=== PATIENT | female | born 1960 | race Caucasian/White ===

== ENCOUNTER 2023-04-02 13:40 | Inpatient (IN) | payer MEDICARE ==
[~2023-04-02 13:40] MED LIST: GASTROGRAFIN 30 ML BOT ONE
[2023-04-02] MEDS ORDERED: NOREPINEPHRINE 8 MG/250 ML-D5W 250 ML ONE (14:08)
[2023-04-02 14:29] LABS: #Basophils 0.2 thou/uL (0.0-0.2); #Monocytes 2.2 thou/uL (0.11-0.59); #Neutrophils 11.1 thou/uL (1.40-6.50); %Basophils 0.9 % (0.0-1.0); %Eosinophils 0.1 % (0.0-10.0); %Lymphocytes 19.2 % (21.0-51.0); %Monocytes 13.1 % (0.0-10.0); %Neutrophils 65.8 % (42.0-75.0); Hemoglobin 9.5 g/dL (12.0-16.0); Mean Corpuscular HGB CONC 27.9 g/dL (32.0-36.0); Mean Corpuscular Hemoglobin 21.9 pg (27.0-31.0); Mean Corpuscular Volume 78.5 fl (78.0-98.0); Mean Platelet Volume 9.5 fL (7.4-10.4); Platelet Count 374 10x3/uL (130-400); RBC Distribution Width 19.8 % (11.5-14.5); Red Blood Cell (RBC) Count 4.33 mill/uL (4.20-5.40); White Blood Cell (WBC) Count 16.9 10x3/uL (4.8-10.8)
[2023-04-02] MEDS ORDERED: Cefepime 2 GM VIAL ONE (14:45)
[2023-04-02] MEDS ORDERED: metroNIDAZOLE 500 MG/100 ML BAG ONE (14:45)
[2023-04-02] MEDS ORDERED: Vancomycin 1 GM/200 ML (FROZEN) BAG ONE (14:45)
[2023-04-02 14:53] LABS: INR-International Normal Ratio 1.2; PTT 43.2 sec (22.9-36.1); Prothrombin Time 16.1 sec (12.0-14.7)
[2023-04-02 14:53] LABS: ALT (SGPT) 9 U/L (8-55); AST (SGOT) 24 U/L (5-34); Albumin 2.9 g/dL (3.4-4.8); Alkaline Phosphatase 105 U/L (40-110); Anion Gap 20 mmol/L (10-20); BUN (Urea Nitrogen) 30 mg/dL (9.8-20.1); Bilirubin, Total 0.3 mg/dL (0.2-1.2); Calc. Creatinine Clearance 0 mL/min (70-130); Calcium 7.3 mg/dL (7.8-10.44); Carbon Dioxide 18 mmol/L (23-31); Chloride 100 mmol/L (98-107); Estimated GFR 8; Globulin 3.4 g/dL (2.4-3.5); Glucose 87 mg/dL (80-115); Potassium 4.5 mmol/L (3.5-5.1); Protein, Total 6.3 g/dL (5.8-8.1); Sodium 133 mmol/L (136-145)
[2023-04-02 14:59] LABS: Anisocytosis SLIGHT = 6-15 cells HPF (0-5); Burr Cells MODERATE= 6-15 cells HPF (0-1); CellaVision Operator ID LAB.MJL; Hypochromia SLIGHT = 6-15 cells HPF (0-5); Microcytosis SLIGHT = 6-15 cells HPF (0-5); Ovalocytes SLIGHT = 2-5 cells HPF (0-1); Platelet Adequacy Comment Platelets Normal; Poikilocytosis MODERATE=16-30 cells HPF (0-5); Polychromasia SLIGHT = 2-3 cells HPF (0-2)
[2023-04-02] MEDS ORDERED: Ondansetron PF 4 MG/2 ML Vial ONE (16:23)
[2023-04-02] MEDS ORDERED: Morphine 4 MG/ML VIAL ONE (16:23)
[2023-04-02 18:40] LABS: Bilirubin Negative (Negative); Blood, Urine Trace (Negative); CAUTI Indications for Culture Dysuria,urgency,freq; Clarity Turbid (Clear); Glucose, Urine (Dipstick) Normal (Negative); Ketone, Urine Negative (Negative); Leukocyte 25 Leu/uL (Negative); Nitrite Negative (Negative); Protein, Urine (Dipstick) 20 mg/dL (Neg-Trace); RBC/HPF 0-3 HPF (0-3); Squamous Epithelial 0-3 HPF (0-3); Urobilinogen Normal mg/dL (Less than 2); WBC/HPF 0-3 HPF (0-3)
[2023-04-02 18:48] LABS: Bacteria/HPF 2+ HPF (None Seen)
[2023-04-02 18:49] LABS: Urine Culture Reflex No No
[2023-04-02] MEDS ORDERED: Ipratropium/Albuterol 3 ML NEB EZPAP PRN (19:33)
[2023-04-02] MEDS ORDERED: Dextrose 50% Abboject 50 ML SYRINGE SLOW IVP PRN (19:38)
[2023-04-02] MEDS ORDERED: HumaLOG 300 UNITS/3 ML VIAL SC PRN (19:38)
[2023-04-02] MEDS ORDERED: Dextrose 5% in Water 1,000 ML IV PRN (19:38)
[2023-04-02] MEDS ORDERED: Glucagon 1 MG/ML KIT IM PRN (19:38)
[2023-04-02] MEDS ORDERED: Sodium Chloride 0.9% 1,000 ML IV SCH (19:45)
[2023-04-02] MEDS ORDERED: Albumin 25% 25 GM/100 ML BOT IVPB SCH (20:00)
[2023-04-02 20:23] LABS: Analyzer IN Cardio ER; Base Excess (BEa) -11.9 mEq/L (-2.0 to +3.0); CO2 Tension 36.4 mmHg (35.0-45.0); Calcium, Ionized (arterial) 0.93 mmol/L (1.12-1.30); Carboxyhemoglobin (COHb) 0.2 gm% (0.0-3.0); Hematocrit-ABG 30 % (36.0-47.0); Hemoglobin (Hb) 10.2 g/dL (12.0-16.0); O2 Tension (PaO2), arterial 90.6 mmHg (> 80.0); Potassium - ABG Lab 4.03 mmol/L (3.70-5.30); pH, Arterial 7.227 (7.35-7.45)
[2023-04-02 20:28] LABS: Actual Bicarbonate (HCO3a) 14.8 mEq/L (22-28); Puncture Site RR
[2023-04-02 21:16] LABS: Troponin I Less than 0.010 ng/mL (< 0.028)
[2023-04-02 21:22] LABS: Magnesium 0.7 mg/dL (1.6-2.6)
[2023-04-02] MEDS ORDERED: Magnesium 2 GM/50 ML(in water) 2 GM in Premix Bag 1 BAG IVPB SCH (21:30)
[2023-04-02] MEDS: Heparin 5,000 UNITS/ML VIAL SC SCH (21:51)
[2023-04-02 21:59] VITALS: BMI 26.2
[2023-04-02] MEDS ORDERED: Vancomycin Dose by Levels Sliding Scale (Wt <71) FS SCH (22:15)
[2023-04-02] MEDS: NOREPINEPHRINE 8 MG/250 ML-D5W 250 ML IVPB SCH (23:01)
[2023-04-02] MEDS: Ipratropium/Albuterol 3 ML NEB NEB SCH (23:19)
[2023-04-02] MEDS ORDERED: Sodium Chloride 0.9% 200 ML IV SCH (23:30)
[2023-04-03 00:51] LABS: Troponin I Less than 0.010 ng/mL (< 0.028)
[2023-04-03 01:52] LABS: Campy jejuni + coli by PCR Negative (Negative); STEC Shiga Toxin 1+2 Negative (Negative); Salmonella spp. by PCR Negative (Negative); Shigella spp + EIEC by PCR Negative (Negative)
[2023-04-03 04:42] LABS: #Basophils 0.1 thou/uL (0.0-0.2); #Eosinphils 0.2 thou/uL (0.0-0.7); #Monocytes 2.1 thou/uL (0.11-0.59); %Basophils 0.9 % (0.0-1.0); %Eosinophils 1.4 % (0.0-10.0); %Lymphocytes 12.5 % (21.0-51.0); %Monocytes 17.3 % (0.0-10.0); %Neutrophils 67.1 % (42.0-75.0); Hemoglobin 8.4 g/dL (12.0-16.0); Mean Corpuscular HGB CONC 27.6 g/dL (32.0-36.0); Mean Corpuscular Hemoglobin 21.6 pg (27.0-31.0); Mean Corpuscular Volume 78.4 fl (78.0-98.0); Mean Platelet Volume 9.6 fL (7.4-10.4); Platelet Count 318 10x3/uL (130-400); RBC Distribution Width 19.5 % (11.5-14.5); Red Blood Cell (RBC) Count 3.88 mill/uL (4.20-5.40); White Blood Cell (WBC) Count 11.9 10x3/uL (4.8-10.8)
[2023-04-03 05:12] LABS: ALT (SGPT) 7 U/L (8-55); AST (SGOT) 18 U/L (5-34); Albumin 3.2 g/dL (3.4-4.8); Alkaline Phosphatase 83 U/L (40-110); Anion Gap 16 mmol/L (10-20); BUN (Urea Nitrogen) 27 mg/dL (9.8-20.1); Bilirubin, Total 0.3 mg/dL (0.2-1.2); Calc. Creatinine Clearance 15 mL/min (70-130); Calcium 7.2 mg/dL (7.8-10.44); Carbon Dioxide 17 mmol/L (23-31); Chloride 105 mmol/L (98-107); Estimated GFR 12; Glucose 184 mg/dL (80-115); Magnesium 1.6 mg/dL (1.6-2.6); Potassium 3.9 mmol/L (3.5-5.1); Protein, Total 6.2 g/dL (5.8-8.1); Sodium 134 mmol/L (136-145)
[2023-04-03] MEDS: NOREPINEPHRINE 8 MG/250 ML-D5W 250 ML IVPB SCH ×3 (05:15→23:25)
[2023-04-03] MEDS ORDERED: Magnesium 2 GM/50 ML(in water) 2 GM in Premix Bag 1 BAG IVPB SCH (05:30)
[2023-04-03] MEDS ORDERED: Sodium Bicarbonate 150 MEQ in Dextrose 5% in Water 1,000 ML IV SCH (06:00)
[2023-04-03] MEDS: Ipratropium/Albuterol 3 ML NEB NEB SCH ×4 (07:55→23:11)
[2023-04-03] MEDS: Heparin 5,000 UNITS/ML VIAL SC SCH ×2 (09:54→20:13)
[2023-04-03] MEDS: Lactated Ringer's 1,000 ML IV SCH ×2 (10:36→20:10)
[2023-04-03] MEDS: Hydrocortisone Sod Succ/PF 100 mg/2 ml Vial IVP SCH ×3 (10:39→22:01)
[2023-04-03] MEDS: HumaLOG 300 UNITS/3 ML VIAL SC PRN (11:10)
[2023-04-03 12:00] LABS: Anion Gap 15 mmol/L (10-20); BUN (Urea Nitrogen) 21 mg/dL (9.8-20.1); Calc. Creatinine Clearance 20 mL/min (70-130); Calcium 7.4 mg/dL (7.8-10.44); Carbon Dioxide 22 mmol/L (23-31); Chloride 100 mmol/L (98-107); Estimated GFR 17; Glucose 224 mg/dL (80-115); Potassium 3.3 mmol/L (3.5-5.1); Sodium 134 mmol/L (136-145)
[2023-04-03 14:33] LABS: Actual Bicarbonate (HCO3v) 23.7 mEq/L (22-28); Base Excess -1.4 mEq/L (-2.0 to +3.0); Calcium, Ionized (venous) 0.96 mmol/L (1.16-1.32); Chloride (VBG) 98 mmol/L (98-106); Hematocrit-VBG 29 % (36.0-47.0); Potassium (VBG) 3.47 mmol/L (3.70-5.30); Sodium 134.9 mmol/L (133-146); pH (venous) 7.378 (7.32-7.43)
[2023-04-03 14:54] LABS: Lactic Acid 2.1 mmol/L (0.5-2.2)
[2023-04-03 15:06] LABS: Vancomycin, Random 15.5 ug/mL (See Comment)
[2023-04-03] MEDS ORDERED: Vancomycin HCl 500 MG in Sodium Chloride 0.9% 100 ML IVPB SCH (15:30)
[2023-04-03] MEDS: Cefepime 1 GM in Sodium Chloride 0.9% 100 ML IVPB SCH (18:22)
[2023-04-03] MEDS ORDERED: ALPRAZolam 0.5 MG TAB PO SCH (23:45)
[2023-04-04] MEDS: Hydrocortisone Sod Succ/PF 100 mg/2 ml Vial IVP SCH ×4 (04:40→21:11)
[2023-04-04 04:44] LABS: #Monocytes 0.5 thou/uL (0.11-0.59); #Neutrophils 9.7 thou/uL (1.40-6.50); %Basophils 0.2 % (0.0-1.0); %Lymphocytes 2.9 % (21.0-51.0); %Monocytes 4.4 % (0.0-10.0); %Neutrophils 91.9 % (42.0-75.0); Hemoglobin 7.8 g/dL (12.0-16.0); Mean Corpuscular HGB CONC 29.1 g/dL (32.0-36.0); Mean Corpuscular Volume 75.5 fl (78.0-98.0); Platelet Count 321 10x3/uL (130-400); RBC Distribution Width 19.3 % (11.5-14.5); Red Blood Cell (RBC) Count 3.55 mill/uL (4.20-5.40); White Blood Cell (WBC) Count 10.5 10x3/uL (4.8-10.8)
[2023-04-04 05:12] LABS: ALT (SGPT) 9 U/L (8-55); AST (SGOT) 21 U/L (5-34); Alkaline Phosphatase 83 U/L (40-110); Anion Gap 15 mmol/L (10-20); BUN (Urea Nitrogen) 13 mg/dL (9.8-20.1); Bilirubin, Total 0.3 mg/dL (0.2-1.2); Calc. Creatinine Clearance 34 mL/min (70-130); Calcium 7.4 mg/dL (7.8-10.44); Carbon Dioxide 27 mmol/L (23-31); Chloride 92 mmol/L (98-107); Estimated GFR 32; Globulin 3.2 g/dL (2.4-3.5); Glucose 234 mg/dL (80-115); Magnesium 1.3 mg/dL (1.6-2.6); Potassium 2.8 mmol/L (3.5-5.1); Protein, Total 6.2 g/dL (5.8-8.1); Sodium 131 mmol/L (136-145)
[2023-04-04] MEDS: HumaLOG 300 UNITS/3 ML VIAL SC PRN ×3 (05:15→18:29)
[2023-04-04] MEDS: Acetaminophen 325 MG TAB PO PRN ×2 (05:15)
[2023-04-04] MEDS ORDERED: Electrolyte Replacement Protocol 1 EACH FS PRN (05:45)
[2023-04-04] MEDS ORDERED: Magnesium Sulfate In Water 4 GM in Premix Bag 1 BAG IVPB SCH (06:00)
[2023-04-04] MEDS: Potassium Chloride 20 MEQ TAB PO SCH ×2 (06:50→11:28)
[2023-04-04] MEDS: Ipratropium/Albuterol 3 ML NEB NEB SCH ×4 (07:21→23:08)
[2023-04-04] MEDS ORDERED: Potassium Chloride 20 MEQ in Premix Bag 1 BAG IVPB SCH (09:00)
[2023-04-04] MEDS: Heparin 5,000 UNITS/ML VIAL SC SCH ×2 (09:36→21:10)
[2023-04-04] MEDS: ALPRAZolam 0.5 MG TAB PO SCH ×3 (09:36→21:11)
[2023-04-04] MEDS: Lactated Ringer's 1,000 ML IV SCH ×2 (10:28→21:12)
[2023-04-04] MEDS: DULoxetine 20 MG CAP PO SCH (11:28)
[2023-04-04 12:31] LABS: Hemoglobin 7.4 g/dL (12.0-16.0)
[2023-04-04 12:47] LABS: Potassium 3.8 mmol/L (3.5-5.1)
[2023-04-04 13:12] LABS: Free T4 (Free Thyroxine) 1.24 ng/dL (0.70-1.48); Thyroid Stimulating Hormone 0.2688 uIU/mL (0.35-4.94)
[2023-04-04] MEDS: Cefepime 1 GM in Sodium Chloride 0.9% 100 ML IVPB SCH (16:59)
[2023-04-04] MEDS: Acetaminophen 500 MG TAB PO PRN (18:28)
[2023-04-04] MEDS: Albumin 25% 25 GM/100 ML BOT IVPB SCH (21:10)
[2023-04-05] MEDS: Acetaminophen 500 MG TAB PO PRN ×3 (03:50→16:23)
[2023-04-05] MEDS: Hydrocortisone Sod Succ/PF 100 mg/2 ml Vial IVP SCH (03:51)
[2023-04-05 04:32] LABS: #Monocytes 0.6 thou/uL (0.11-0.59); %Lymphocytes 5.7 % (21.0-51.0); Hemoglobin 6.9 g/dL (12.0-16.0); Mean Corpuscular HGB CONC 28.9 g/dL (32.0-36.0); Mean Corpuscular Volume 76.1 fl (78.0-98.0); Mean Platelet Volume 9.9 fL (7.4-10.4); Platelet Count 193 10x3/uL (130-400); RBC Distribution Width 19.6 % (11.5-14.5); Red Blood Cell (RBC) Count 3.14 mill/uL (4.20-5.40)
[2023-04-05 04:59] LABS: ALT (SGPT) 8 U/L (8-55); AST (SGOT) 17 U/L (5-34); Albumin 3.3 g/dL (3.4-4.8); Alkaline Phosphatase 65 U/L (40-110); Anion Gap 12 mmol/L (10-20); BUN (Urea Nitrogen) 12 mg/dL (9.8-20.1); Bilirubin, Total 0.3 mg/dL (0.2-1.2); Calc. Creatinine Clearance 50 mL/min (70-130); Calcium 7.8 mg/dL (7.8-10.44); Carbon Dioxide 27 mmol/L (23-31); Chloride 96 mmol/L (98-107); Estimated GFR 52; Globulin 2.7 g/dL (2.4-3.5); Glucose 205 mg/dL (80-115); Sodium 131 mmol/L (136-145)
[2023-04-05 05:06] LABS: Anisocytosis SLIGHT = 6-15 cells HPF (0-5); CellaVision Operator ID lab.abc; Hypochromia MODERATE=16-30 cells HPF (0-5); Platelet Adequacy Comment Platelets Normal; Polychromasia SLIGHT = 2-3 cells HPF (0-2)
[2023-04-05] MEDS: Ipratropium/Albuterol 3 ML NEB NEB SCH ×3 (07:33→18:49)
[2023-04-05] MEDS ORDERED: Magnesium 2 GM/50 ML(in water) 2 GM in Premix Bag 1 BAG IVPB SCH (08:00)
[2023-04-05] MEDS ORDERED: Hydrocortisone 10 mg Tablet PO SCH (09:00)
[2023-04-05] MEDS: Heparin 5,000 UNITS/ML VIAL SC SCH ×2 (09:57→21:25)
[2023-04-05] MEDS: ALPRAZolam 0.5 MG TAB PO SCH ×3 (09:59→21:27)
[2023-04-05] MEDS: Albumin 25% 25 GM/100 ML BOT IVPB SCH ×2 (09:59→21:28)
[2023-04-05] MEDS ORDERED: Cefepime 1 GM in Sodium Chloride 0.9% 100 ML IVPB SCH (11:00)
[2023-04-05] MEDS: DULoxetine 20 MG CAP PO SCH (12:52)
[2023-04-05] MEDS ORDERED: Azithromycin 250 MG TAB PO SCH (16:45)
[2023-04-05 17:09] LABS: Hemoglobin 6.5 g/dL (12.0-16.0); Mean Corpuscular HGB CONC 28.5 g/dL (32.0-36.0); Mean Corpuscular Hemoglobin 22.2 pg (27.0-31.0); Mean Corpuscular Volume 77.8 fl (78.0-98.0); Mean Platelet Volume 9.7 fL (7.4-10.4); Platelet Count 189 10x3/uL (130-400); RBC Distribution Width 19.6 % (11.5-14.5); Red Blood Cell (RBC) Count 2.93 mill/uL (4.20-5.40); White Blood Cell (WBC) Count 8.1 10x3/uL (4.8-10.8)
[2023-04-05] MEDS ORDERED: Acetaminophen 500 MG TAB PO PRN (17:15)
[2023-04-05] MEDS: Ondansetron PF 4 MG/2 ML Vial IVP PRN (21:25)
[2023-04-05] MEDS: Metoprolol Tartrate 25 MG TAB PO SCH (21:26)
[2023-04-05] MEDS: Atorvastatin Calcium 40 MG TAB PO SCH (21:27)
[2023-04-05] MEDS: Hydrocortisone 10 mg Tablet PO SCH (21:28)
[2023-04-05] MEDS: cefTRIAXone\\ROCEPHIN 2 GM in Sodium Chloride 0.9% 100 ML IVPB SCH (21:29)
[2023-04-06] MEDS: Ipratropium/Albuterol 3 ML NEB NEB SCH ×4 (00:13→19:44)
[2023-04-06 04:33] LABS: #Monocytes 0.5 thou/uL (0.11-0.59); #Neutrophils 7.2 thou/uL (1.40-6.50); %Basophils 0.1 % (0.0-1.0); %Eosinophils 0.1 % (0.0-10.0); %Lymphocytes 8.1 % (21.0-51.0); %Monocytes 5.8 % (0.0-10.0); Hemoglobin 8.5 g/dL (12.0-16.0); Mean Corpuscular HGB CONC 29.9 g/dL (32.0-36.0); Mean Corpuscular Hemoglobin 23.1 pg (27.0-31.0); Mean Corpuscular Volume 77.2 fl (78.0-98.0); Mean Platelet Volume 10.1 fL (7.4-10.4); Platelet Count 198 10x3/uL (130-400); RBC Distribution Width 19.4 % (11.5-14.5); Red Blood Cell (RBC) Count 3.68 mill/uL (4.20-5.40); White Blood Cell (WBC) Count 8.6 10x3/uL (4.8-10.8)
[2023-04-06 04:56] LABS: Anion Gap 12 mmol/L (10-20); BUN (Urea Nitrogen) 13 mg/dL (9.8-20.1); Calc. Creatinine Clearance 62 mL/min (70-130); Calcium 8.4 mg/dL (7.8-10.44); Carbon Dioxide 28 mmol/L (23-31); Chloride 101 mmol/L (98-107); Estimated GFR 64; Glucose 122 mg/dL (80-115); Potassium 3.8 mmol/L (3.5-5.1); Sodium 137 mmol/L (136-145)
[2023-04-06] MEDS: Metoprolol Tartrate 25 MG TAB PO SCH ×2 (09:55→21:22)
[2023-04-06] MEDS: Aspirin Chewable 81 MG TAB PO SCH (09:55)
[2023-04-06] MEDS: Hydrocortisone 10 mg Tablet PO SCH ×2 (09:55→21:20)
[2023-04-06] MEDS: Azithromycin 250 MG TAB PO SCH (09:55)
[2023-04-06] MEDS: Clopidogrel Bisulfate 75 MG TAB PO SCH (09:55)
[2023-04-06] MEDS: DULoxetine 20 MG CAP PO SCH (09:56)
[2023-04-06] MEDS: Heparin 5,000 UNITS/ML VIAL SC SCH ×2 (10:05→21:21)
[2023-04-06] MEDS: ALPRAZolam 0.5 MG TAB PO SCH ×3 (10:11→21:22)
[2023-04-06] MEDS ORDERED: Sodium Chloride 0.65% Nasal 44 ML BOT EA NARE PRN (14:44)
[2023-04-06] MEDS: HumaLOG 300 UNITS/3 ML VIAL SC PRN (17:29)
[2023-04-06] MEDS: cefTRIAXone\\ROCEPHIN 2 GM in Sodium Chloride 0.9% 100 ML IVPB SCH (21:20)
[2023-04-06] MEDS: Atorvastatin Calcium 40 MG TAB PO SCH (21:22)
[2023-04-06] MEDS: Ondansetron PF 4 MG/2 ML Vial IVP PRN (21:40)
[2023-04-07] MEDS: Ipratropium/Albuterol 3 ML NEB NEB SCH ×4 (00:20→19:13)
[2023-04-07 06:09] LABS: Hemoglobin 8.7 g/dL (12.0-16.0); Mean Corpuscular HGB CONC 29.3 g/dL (32.0-36.0); Mean Corpuscular Hemoglobin 22.9 pg (27.0-31.0); Mean Corpuscular Volume 78.2 fl (78.0-98.0); Mean Platelet Volume 9.5 fL (7.4-10.4); Platelet Count 205 10x3/uL (130-400); RBC Distribution Width 19.9 % (11.5-14.5); White Blood Cell (WBC) Count 7.4 10x3/uL (4.8-10.8)
[2023-04-07 06:17] LABS: Delete Auto Diff?? YES; Manual Diff?? YES
[2023-04-07] MEDS: HumaLOG 300 UNITS/3 ML VIAL SC PRN ×2 (06:17→17:48)
[2023-04-07 06:32] LABS: Anion Gap 14 mmol/L (10-20); BUN (Urea Nitrogen) 14 mg/dL (9.8-20.1); Calc. Creatinine Clearance 60 mL/min (70-130); Calcium 8.5 mg/dL (7.8-10.44); Carbon Dioxide 27 mmol/L (23-31); Chloride 100 mmol/L (98-107); Estimated GFR 59; Glucose 161 mg/dL (80-115); Sodium 137 mmol/L (136-145)
[2023-04-07 06:48] LABS: Anisocytosis SLIGHT = 6-15 cells HPF (0-5); CellaVision Operator ID lab.abc; Hypochromia SLIGHT = 6-15 cells HPF (0-5); Lymphocytes 6 % (21-51); Microcytosis SLIGHT = 6-15 cells HPF (0-5); Monocytes 1 % (0-10); Neutrophil 93 % (42-75); Platelet Adequacy Comment Platelets Normal; Polychromasia SLIGHT = 2-3 cells HPF (0-2); Smudge Cells 17.8 %; Total Cell Count 101
[2023-04-07] MEDS: Clopidogrel Bisulfate 75 MG TAB PO SCH (10:06)
[2023-04-07] MEDS: Aspirin Chewable 81 MG TAB PO SCH (10:06)
[2023-04-07] MEDS: Azithromycin 250 MG TAB PO SCH (10:06)
[2023-04-07] MEDS: Metoprolol Tartrate 25 MG TAB PO SCH ×2 (10:06→20:38)
[2023-04-07] MEDS: ALPRAZolam 0.5 MG TAB PO SCH ×3 (10:06→20:38)
[2023-04-07] MEDS: DULoxetine 20 MG CAP PO SCH (10:07)
[2023-04-07] MEDS: Heparin 5,000 UNITS/ML VIAL SC SCH ×2 (10:07→20:38)
[2023-04-07] MEDS: Hydrocortisone 10 mg Tablet PO SCH (10:07)
[2023-04-07] MEDS ORDERED: Lactated Ringer's 500 ML IV SCH (12:45)
[2023-04-07] MEDS ORDERED: ALPRAZolam 0.5 MG TAB PO SCH (17:15)
[2023-04-07] MEDS: Ondansetron PF 4 MG/2 ML Vial IVP PRN (17:52)
[2023-04-07] MEDS: Atorvastatin Calcium 40 MG TAB PO SCH (20:38)
[2023-04-07] MEDS: cefTRIAXone\\ROCEPHIN 2 GM in Sodium Chloride 0.9% 100 ML IVPB SCH (20:38)
[2023-04-08] MEDS: Ipratropium/Albuterol 3 ML NEB NEB SCH ×4 (00:45→19:17)
[2023-04-08] MEDS: Clopidogrel Bisulfate 75 MG TAB PO SCH (08:36)
[2023-04-08] MEDS: Nystatin 500,000 UNITS/5 ML UDCUP SSW PRN ×2 (08:36→15:32)
[2023-04-08] MEDS: ALPRAZolam 0.5 MG TAB PO SCH ×3 (08:36→19:34)
[2023-04-08] MEDS: Aspirin Chewable 81 MG TAB PO SCH (08:36)
[2023-04-08] MEDS: DULoxetine 20 MG CAP PO SCH (08:37)
[2023-04-08] MEDS: Heparin 5,000 UNITS/ML VIAL SC SCH ×2 (08:37→19:33)
[2023-04-08] MEDS: Metoprolol Tartrate 25 MG TAB PO SCH ×2 (08:40→19:32)
[2023-04-08 08:51] LABS: #Monocytes 1.5 thou/uL (0.11-0.59); #Neutrophils 7.9 thou/uL (1.40-6.50); %Basophils 0.2 % (0.0-1.0); %Eosinophils 0.2 % (0.0-10.0); %Monocytes 11.9 % (0.0-10.0); %Neutrophils 60.7 % (42.0-75.0); Hemoglobin 9.4 g/dL (12.0-16.0); Mean Corpuscular HGB CONC 28.7 g/dL (32.0-36.0); Mean Corpuscular Hemoglobin 22.7 pg (27.0-31.0); Mean Platelet Volume 9.4 fL (7.4-10.4); Platelet Count 185 10x3/uL (130-400); RBC Distribution Width 20.1 % (11.5-14.5); Red Blood Cell (RBC) Count 4.14 mill/uL (4.20-5.40); White Blood Cell (WBC) Count 12.9 10x3/uL (4.8-10.8)
[2023-04-08] MEDS ORDERED: Hydrocortisone 10 mg Tablet PO SCH (09:00)
[2023-04-08 09:12] LABS: Anion Gap 15 mmol/L (10-20); BUN (Urea Nitrogen) 14 mg/dL (9.8-20.1); Calc. Creatinine Clearance 59 mL/min (70-130); Calcium 8.7 mg/dL (7.8-10.44); Carbon Dioxide 24 mmol/L (23-31); Chloride 101 mmol/L (98-107); Estimated GFR 57; Glucose 97 mg/dL (80-115); Potassium 3.7 mmol/L (3.5-5.1); Sodium 136 mmol/L (136-145)
[2023-04-08 09:34] LABS: CellaVision Operator ID LAB.GE; Hypochromia MODERATE=16-30 cells HPF (0-5); Large Platelets 4.1 % (0-5); Ovalocytes SLIGHT = 2-5 cells HPF (0-1); Platelet Adequacy Comment Platelets Normal; Polychromasia MODERATE = 3-4 cells HPF (0-2)
[2023-04-08] MEDS ORDERED: predniSONE 5 MG TAB PO SCH (09:45)
[2023-04-08] MEDS: Atorvastatin Calcium 40 MG TAB PO SCH (19:33)
[2023-04-08 19:43] VITALS: BP 138/92; TEMP 97.7
[2023-04-08] MEDS ORDERED: Amoxicillin/Potassium Clav 875 MG TAB PO SCH (21:00)
[2023-04-09] MEDS ORDERED: predniSONE 20 MG TAB PO SCH (08:00)
[2023-04-11] MEDS ORDERED: Hydrocortisone 10 mg Tablet PO SCH (09:00)
== END 2023-04-08 20:25 | DRG 871 ==
LOC: ERS 13:40 → CCU 19:29 → MSONC 04-05 12:42
PROVIDERS: ADMIT Internal Medicine; ATTEND Hospitalist
PROC: 3E043XZ Introduction of Vasopressor into Central Vein, Percutaneous Approach (ICD-10-PCS; principal; 2023-04-02)
PROC: 02HV33Z Insertion of Infusion Device into Superior Vena Cava, Percutaneous Approach (ICD-10-PCS; 2023-04-02)
PROC: 3E03029 Introduction of Other Anti-infective into Peripheral Vein, Open Approach (ICD-10-PCS; 2023-04-02)
PROC: 4A133R1 Monitoring of Arterial Saturation, Peripheral, Percutaneous Approach (ICD-10-PCS; 2023-04-02)
PROC: 30233N1 Transfusion of Nonautologous Red Blood Cells into Peripheral Vein, Percutaneous Approach (ICD-10-PCS; 2023-04-05)
DX: A41.9 Sepsis, unspecified organism (principal); R57.1 Hypovolemic shock; R65.21 Severe sepsis with septic shock; I50.42 Chronic combined systolic (congestive) and diastolic (congestive) heart failure; J96.11 Chronic respiratory failure with hypoxia; N17.9 Acute kidney failure, unspecified; I13.2 Hypertensive heart and chronic kidney disease with heart failure and with stage 5 chronic kidney disease, or end stage renal disease; N18.5 Chronic kidney disease, stage 5; E87.20 Acidosis, unspecified; G93.49 Other encephalopathy; E11.51 Type 2 diabetes mellitus with diabetic peripheral angiopathy without gangrene; J44.9 Chronic obstructive pulmonary disease, unspecified; R19.7 Diarrhea, unspecified; E66.9 Obesity, unspecified; F41.9 Anxiety disorder, unspecified; D63.1 Anemia in chronic kidney disease; E11.22 Type 2 diabetes mellitus with diabetic chronic kidney disease; K43.9 Ventral hernia without obstruction or gangrene; E87.6 Hypokalemia; E83.42 Hypomagnesemia; E86.0 Dehydration; F32.A Depression, unspecified; Z87.01 Personal history of pneumonia (recurrent); Z88.2 Allergy status to sulfonamides; Z99.81 Dependence on supplemental oxygen; Z91.018 Allergy to other foods; Z79.899 Other long term (current) drug therapy; Z79.82 Long term (current) use of aspirin; Z79.02 Long term (current) use of antithrombotics/antiplatelets; Z79.84 Long term (current) use of oral hypoglycemic drugs; Z90.89 Acquired absence of other organs; Z93.3 Colostomy status; Z98.1 Arthrodesis status; Z87.440 Personal history of urinary (tract) infections; Z87.891 Personal history of nicotine dependence
CPT/HCPCS: 36415; 36416; 36430; 36556; 51701; 71045; 74176; 76770; 80048; 80053; 80202; 81001; 82533; 82805; 83605; 83735; 84145; 84439; 84443; 84484; 85025; 85610; 85730; 86850; 86900; 86901; 87040; 87081; 87086; 87324; 87449; 87505; 93005; 93010; 93970; 94640; 96365; 96366; 96368; 96375; J0692; J0696; J1644; J1720; J1815; J2270; J2405; J3370; J3370-JW; J3475; J3480; J3490; J7050; J7070; J7120; J7512; J7620; P9016; P9047; Q9963